=== PATIENT | female | born 2000 | race Caucasian/White ===

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

== ENCOUNTER 2022-03-25 22:06 | Emergency (ER) | payer OTHER ==
[2022-03-25 22:29] VITALS: BP 118/80; PULSE 98; RESP 20; TEMP 98
[2022-03-25] MEDS ORDERED: KETOROLAC 15 MG/ML 1 ML VIAL IM STA (22:51)
[2022-03-25] MEDS ORDERED: ORPHENADRINE 30 MG/ML 2 ML VIAL IM STA (22:51)
--- NOTE | 2022-03-25 23:00 | ED ---
Back Pain HPI - General Chief Complaint: Back Pain/Injury Stated Complaint: back pain Time Seen by Provider: 03/25/22 22:45 Source: patient, family, RN notes reviewed Limitations: no limitations - History of Present Illness Initial Comments: This is a pleasant 21-year-old female who presents to emergency department complaining of low back pain which started yesterday morning when she woke up. Patient states pain is sharp, exacerbated by movement, exacerbated by certain positions, alleviated by rest, any problems with balance urination. No numbness or tingling. Patient able to ambulate without difficulty. No fever. No direct trauma. He has no significant past medical history. No immunosuppression. No diabetes. Patient does work at [employer] and states she worked out the day before yesterday. No headache, no fever or chills, no changes in vision or hearing, no sore throat or difficulty with speech, no neck pain, no chest pain or shortness of breath, no abdominal pain, no nausea or vomiting, no changes in urination or bowel movements, no numbness or tingling, no extremity pain, no skin rashes or lesions. Past medical, surgical, social, and family history reviewed. Denies chance of MD Complaint: back pain - Related Data Previous Rx's Medication Instructions Recorded Erythromycin Ophth Oint [Romycin 1 applic BOTH EYES QID #1 bottle 06/22/19 Ophth Oint] Acetaminophen Tab [Tylenol Tab] 500 mg PO Q6H PRN #24 tablet 03/26/22 Cyclobenzaprine [Flexeril] 10 mg PO TID PRN #20 tab 03/26/22 Naproxen [Naprosyn] 375 mg PO Q12HR PRN #20 tablet 03/26/22 Allergies Allergy/AdvReac Type Severity Reaction Status Date / Time No Known Allergies Allergy Verified 02/10/16 18:10 Review of Systems ROS Statement: Those systems with pertinent positive or pertinent negative responses have been documented in the HPI. ROS Other: All systems not noted in ROS Statement are negative. Past Medical History Past Medical History: No Reported History History of Any Multi-Drug Resistant Organisms: None Reported Past Surgical History: No Surgical Hx Reported Past Psychological History: No Psychological Hx Reported Past Alcohol Use History: None Reported Past Drug Use History: None Reported General Exam Limitations: no limitations General appearance: in distress Head exam: Present: atraumatic, normocephalic, normal inspection Eye exam: Present: normal appearance, PERRL, EOMI. Absent: scleral icterus, conjunctival injection, periorbital swelling ENT exam: Present: normal exam, mucous membranes moist, normal external ear exam. Absent: mucous membranes dry Neck exam: Present: normal inspection, full ROM. Absent: tenderness, meningism us, lymphadenopathy Respiratory exam: Present: normal lung sounds bilaterally. Absent: respiratory distress, wheezes, rales, rhonchi, stridor, chest wall tenderness, accessory muscle use, decreased breath sounds, prolonged expiratory Cardiovascular Exam: Present: regular rate, normal rhythm, normal heart sounds. Absent: systolic murmur, diastolic murmur, rubs, gallop, clicks GI/Abdominal exam: Present: soft, normal bowel sounds. Absent: distended, tenderness, guarding, rebound, rigid Extremities exam: Present: normal inspection, full ROM, normal capillary refill. Absent: tenderness, pedal edema, joint swelling, calf tenderness Back exam: Present: normal inspection, tenderness, muscle spasm (Bilateral lumbar), paraspinal tenderness (Lumbar), other (Straight leg raise negative). Absent: full ROM (Range of motion limited with regards to [place] flexion at about 60. Axial rotation, extension, lateral bending all 4 with increased pain.), vertebral tenderness, rash noted Neurological exam: Present: alert, oriented X3, CN II-XII intact, normal gait, reflexes normal. Absent: abnormal gait, motor sensory deficit Psychiatric exam: Present: normal affect, normal mood Skin exam: Present: warm, dry, intact, normal color. Absent: rash Course Vital Signs 03/25/22 22:26 Temperature 98 F Pulse Rate 98 Respiratory 20 Rate Blood Pressure 118/80 O2 Sat by Pulse 98 Oximetry - Reevaluation(s) Reevaluation #1: 03/26/22 00:16 Patient reevaluated and is much improved. Pain is improved greatly. Vital signs stable, patient afebrile Medical Decision Making - Medical Decision Making Was pt. sent in by a medical professional or institution? @ No Did you speak to anyone other than the patient for history? @ No Were old charts reviewed? @ No Differential Diagnosis? @ MDM Differential Back Pain: Strain, zoster, cauda equina syndrome, epidural abscess, vertebral osteomyelitis, discitis, fracture, subluxation, disc herniation, DJD, spinal stenosis, dissection, AAA, pancreatitis, peptic ulcer disease, pyelonephritis, kidney stone this is not meant to be an all-inclusive list. Patient's presentation and symptomology consistent with musculoskeletal back pain. -There are no red flags for concerning back pathology. Specifically: -No history of cancer, this is not a mass effect, MRI not indicated. -No anticoagulation, this is not a bleed. -No fevers, no IVDU, this is not an infectious process. -No trauma, no bony pain, x-rays are not indicated. -With a normal neuro exam, and no urinary or bowel retention or incontinence, there is no clinical sign of motor defect or cauda equina - MRI is not indicated at this point. -No pulsating abdominal mass or risk factors for AAA. -Pain is relieved with rest, which is also less concerning. -I do not believe that x-rays or emergent MRI is indicated at this time. -We will treat symptomatically and discharge home with follow up instructions. -Stretching/strengthening exercise given to patient and they will be referred to physical therapy Patient took a [place] which was given to her by her family member prior to arrival. There was little effect. Will suggest acetaminophen along with a muscle relaxer and anti-inflammatory medication to the patient. What testing was considered but not performed? (CT, X-rays, U/S, labs)? Why? I did consider imaging. However this is a 21-year-old female with 2 days of what appears to be musculoskeletal back pain, mainly lumbar spasm and lumbar strain. I do not believe x-rays, computed tomography scan, MRI would be of benefit at this time. What meds were considered but not given? Why? I did consider narcotic analgesics. After discussion with the patient and her mother these were deferred in favor of acetaminophen along with the anti- inflammatory medication and muscle relaxers. @ Patient was treated for [place] skeletal back pain Diagnosis/symptom? @ Acute lumbar strain Acute, or Chronic, or Acute on Chronic? @ Acute Uncomplicated (without systemic symptoms) or Complicated (systemic symptoms)? @uncomplicated Side effects of treatment? @ [none] Poses a threat to life or bodily function? @ [no] Patient was told to return to the ER for any signs or symptoms worsen. Told to return immediately if any other problems arise. All questions answered. Treatment plan discussed. Patient in agreement Every effort has been made to ensure accuracy of this dictation. However, due to the limitations of electronic medical records and dictation devices, errors in charting still occur. Revising physician Disposition Clinical Impression: Acute lumbar myofascial strain Disposition: HOME SELF-CARE Condition: Good Instructions (If sedation given, give patient instructions): Low Back Strain (ED) Additional Instructions: Follow-up with your regular physician as directed. Return to the ER immediately if any symptoms worsen, new symptoms arise, or any other problems develop. Prescriptions: Cyclobenzaprine [Flexeril] 10 mg PO TID PRN #20 tab PRN Reason: Spasms Naproxen [Naprosyn] 375 mg PO Q12HR PRN #20 tablet PRN Reason: Pain Acetaminophen Tab [Tylenol Tab] 500 mg PO Q6H PRN #24 tablet PRN Reason: Pain Is patient prescribed a controlled substance at d/c from ED?: No Referrals: None,Stated [Primary Care Provider] - 1-2 days Time of Disposition: 00:10
[2022-03-26 00:23] LABS: Appearance,Urine Clear (Clear); Bilirubin,Urine Negative (Negative); Blood,Urine Negative (Negative); Color,Urine Yellow; Glucose,Urine (UA) Negative (Negative); Ketones,Urine Negative (Negative); Leukocyte Esterase,Urine Negative (Negative); Nitrite,Urine Negative (Negative); PH, Urine 5.5 (5.0-8.0); Protein,Urine Negative (Negative); Specific Gravity,Urine 1.024 (1.001-1.035); Urobilinogen,Urine <2.0 mg/dL (<2.0)
== END 2022-03-26 00:19 | disposition home or self-care (01) ==
LOC: EC 22:06
DX: S39.012A Strain of muscle, fascia and tendon of lower back, initial encounter (principal); X58.XXXA Exposure to other specified factors, initial encounter
CPT/HCPCS: 99283; 96372 ×2; J2360; J1885; 81003; 81025